=== PATIENT | male | born 1965 | race Caucasian/White ===

== ENCOUNTER 2016-11-17 11:24 | Emergency (ER) | payer SELFPAY ==
[~2016-11-17] VITALS: Ht 182.9 cm; Wt 83.9 kg
--- NOTE | 2016-11-17 11:56 | ED General ---
General Chief Complaint: Allergic Reaction Stated Complaint: R EYE SWELLING/PAIN Nursing Triage Note: PT C/O GENERALIZED HIVES X 4 DAYS. HE DENIES SOA OR ANY OTHER S/S Nursing Sepsis Screen: No Definite Risk Source of Information: Patient Exam Limitations: No Limitations History of Present Illness Time Seen by Provider: 11:56 Initial Comments 51 YO MALE PATIENT PRESENTS TO THE ED WITH C/O GENERALIZED HIVES X4 DAYS. NOW PATIENT C/O HEADACHE. DENIES SOA, DIFFICULTY SWALLOWING, OR DIZZINESS. DENIES NEW FOODS, NEW MEDICATIONS, SOAPS, LAUNDRY DETERGENT, OR CHEMICAL EXPOSURE. SIGNIFICANT OTHER STATES SHE IS NOW STARTING TO GET THE SAME RASH. Timing/Duration: 3-4 Days, Getting Worse Modifying Factors: worse with Other (WORSE WITH SCRATCHING.) Allergies and Home Medications Allergies Uncoded Allergies: PENICILLIN (Allergy, Unknown, 11/17/16) Home Medications Prednisone 20 Mg Tab #10 40 MG PO DAILY Prescribed by: BENITO MURRAY on 11/17/16 1254 Sulfamethoxazole/Trimethoprim 1 Each Tablet #14 1 EACH PO BID Prescribed by: BENITO MURRAY on 11/17/16 1323 Constitutional: No chills, No diaphoresis, No dizziness, No fever, malaise EENTM: nose congestion other (RHINORRHEA.) see HPI tearingNo ear discharge, No ear pain, No mouth pain, No mouth swelling, No throat pain, No throat swelling Respiratory: No cough, No short of breath, No stridor, No wheezing Cardiovascular: no symptoms reported Gastrointestinal: No abdominal pain, No diarrhea, No nausea, No vomiting Genitourinary: no symptoms reported Musculoskeletal: no symptoms reported Skin: see HPI rash Psychiatric/Neurological: HeadacheDenies Numbness, Denies Paresthesia, Denies Tingling, Denies Weakness Immunological/Allergic: see HPI All Other Systems Reviewed Negative Unless Noted: Yes (Negative excepted noted.) Past Ucfxigf-Hcwjvz-Tojezj Hx Patient Social History Alcohol Use: Denies Use Recreational Drug Use: No Smoking Status: Former Smoker Recent Foreign Travel: No Contact w/Someone Who Travel: No Recent Infectious Disease Expo: No Recent Hopitalizations: No Seasonal Allergies Seasonal Allergies: No Surgeries HX Surgeries: No Respiratory Hx Respiratory Disorders: No Cardiovascular Hx Cardiac Disorders: No Neurological Hx Neurological Disorders: No Genitourinary Hx Genitourinary Disorders: No Gastrointestinal Hx Gastrointestinal Disorders: No Musculoskeletal Hx Musculoskeletal Disorders: No HEENT HX ENT Disorders: No Integumentary HX Skin/Integumentary Disorder: No Reviewed Nursing Assessment Reviewed/Agree w Nursing PMH: Yes Family Medical History Significant Family History: No Pertinent Family Hx Physical Exam Vital Signs Vital Sign - Last 12Hours 11/17/16 11:34 Temp 98.5 Pulse 89 Resp 20 B/P 145/89 Pulse Ox 97 O2 Delivery Room Air Capillary Refill : Less Than 3 Seconds General Appearance: No Apparent Distress WD/WN HEENT: PERRL/EOMI TMs Normal Pharynx Normal Other ( PUSTULES NOTED ON THE RT CHEEK WITH EXCORIATIONS. SWELLING AND ERYTHEMA OF THE BILAT EYE LIDS CONSISTENT WITH AN ALLERGIC REACTION. (+) RHINORRHEA AND NASAL CONGESTION.) Neck: Full Range of Motion Non Tender Supple Other ((+) URTICARIAL RASH.) Respiratory: Lungs Clear Normal Breath Sounds No Accessory Muscle Use No Respiratory Distress Cardiovascular: Regular Rate, Rhythm No Murmur Normal Peripheral Pulses Gastrointestinal: Normal Bowel Sounds Non Tender SoftNo Distended Back: Other ((+) URTICARIAL RASH.) Extremity: Normal Capillary Refill Normal Range of Motion Other ((+) URTICARIAL RASH OF ALL EXTREMITIES. BUE SHOW SCABS IN VARIOUS STAGES OF HEALING. ) Neurologic/Psychiatric: Alert Oriented x3 Normal Mood/Affect Skin: No Cool, No Cyanosis, No Damp, No Diaphoresis, No Mottled, No Petechia, Rash (GENERALIZED URTICARIAL RASH. PUSTULES NOTED ON THE RT CHEEK WITH EXCORIATIONS. SWELLING AND ERYTHEMA OF THE BILAT EYE LIDS CONSISTENT WITH AN ALLERGIC REACTION.) Other (BUE SHOW SCABS IN VARIOUS STAGES OF HEALING.) Progress/Results/Core Measures Results/Orders Lab Results Laboratory Tests Test 11/17/16 12:30 Range/Units Basophils # (Auto) 0.1 0.0-0.1 10^3/uL Basophils (%) (Auto) 1 0-10 % C-Reactive Protein High Sensitivity 0.36 0.00-0.50 MG/DL Eosinophils # (Auto) 0.8 H 0.0-0.3 10^3/uL Eosinophils (%) (Auto) 9 0-10 % Hematocrit 46 40-54 % Hemoglobin 15.9 13.3-17.7 G/DL Lymphocytes # (Auto) 2.3 1.0-4.0 X 10^3 Lymphocytes (%) (Auto) 25 12-44 % Mean Corpuscular Hemoglobin 31 25-34 PG Mean Corpuscular Hemoglobin Concent 35 32-36 G/DL Mean Corpuscular Volume 91 80-99 FL Mean Platelet Volume 11.1 H 7.4-10.4 FL Monocytes # (Auto) 0.7 0.0-1.0 X 10^3 Monocytes (%) (Auto) 8 0-12 % Neutrophils # (Auto) 5.4 1.8-7.8 X 10^3 Neutrophils (%) (Auto) 58 42-75 % Platelet Count 210 130-400 10^3/uL Red Blood Count 5.06 4.35-5.85 10^6/uL Red Cell Distribution Width 12.9 10.0-14.5 % White Blood Count 9.3 4.3-11.0 10^3/uL My Orders Orders-BENITO MURRAY Cbc With Automated Diff (11/17/16 12:05) Hs C Reactive Protein (11/17/16 12:05) Saline Lock/Iv-Start (11/17/16 12:05) Ketorolac Injection (Toradol Injection) (11/17/16 12:05) Diphenhydramine Injection (Benadryl Inje (11/17/16 12:05) Methylprednisolone Sod Succ (Solu-Medrol (11/17/16 12:05) Famotidine Injection (Pepcid Injection) (11/17/16 12:05) Prednisone Tablet (Deltasone Tablet) (11/17/16 13:30) Sulfamethoxazole/Trimet Ds Tab (Bactrim (11/17/16 13:30) Medications Given in ED Current Medications Medications Dose Ordered Sig/Rachel Route Start Time Stop Time Status Last Admin Dose Admin Prednisone 40 mg ONCE ONCE PO 11/17/16 13:30 11/17/16 13:31 DC 11/17/16 13:32 40 MG Trimethoprim/ Sulfamethoxazole 1 ea ONCE ONCE PO 11/17/16 13:30 11/17/16 13:31 DC 11/17/16 13:32 1 EA Vital Signs/I&O Vital Sign - Last 12Hours 11/17/16 13:35 Temp 98.5 Pulse 89 Resp 20 Pulse Ox 97 Blood Pressure Mean: 107 Departure Communication Progress Notes Laboratory findings discussed with the patient. Patient reports feeling better with medications. Patient shows improvement in the swelling and rash. Patient is alert and oriented 3, no acute distress. Impression Impression: Primary Impression: Urticaria Disposition: 01 HOME, SELF-CARE Condition: Improved Departure-Patient Inst. Decision time for Depature: 12:51 Referrals: BARBIE MOURA DO (PCP) Primary Care Physician Patient Instructions: Angioedema (DC), Contact Dermatitis (DC) Add. Discharge Instructions: All discharge instructions reviewed with patient and/or family. Voiced understanding. Medications as instructed. Pepcid [id number] 20 mg by mouth twice daily as needed for allergic reactions. Tylenol Extra Strength over -the-counter as directed for pain. Ibuprofen qdnn-oyf-urlyenp as directed for pain. Benadryl 25-50 mg by mouth every 4-6 hours as needed for rash or itching. Claritin, Funmi, or Zyrtec ykfi-fqs-tvugipl as directed for rash or itching. Cool compresses. Follow-up with the family practitioner of choice for recheck and to establish care this week. Call Friday morning for appointment time. Return to the emergency department for worsened symptoms or any other concerns. Scripts Sulfamethoxazole/Trimethoprim (Bactrim Ds Tablet)1 Each Tablet1 Each PO BID #14 TAB Ref 0 Prov:BENITO MURRAY 11/17/16 Prednisone 20 Mg Tab40 Mg PO DAILY #10 TAB Ref 0 Prov:BENITO MURRAY 11/17/16 BENITO MURRAY Nov 17, 2016 11:56 Prednisone 20 Mg Tab40 Mg PO DAILY #10 TAB Ref 0 Prov:BENITO MURRAY 11/17/16 BENITO MURRAY Nov 17, 2016 11:56
[2016-11-17] MEDS ORDERED: diphenhydrAMINE 50 MG/ML INJ (BENADRYL) IV STA (12:05)
[2016-11-17] MEDS ORDERED: KETOROLAC 30 MG/ML VIAL IVP STA (12:05)
[2016-11-17] MEDS ORDERED: methylPREDNISolone 125 MG (Solu-MEDROL) VIAL IV STA (12:05)
[2016-11-17] MEDS ORDERED: FAMOTIDINE 20MG/2ML IV (PEPCID) IV STA (12:05)
[2016-11-17 12:39] LABS: BASOPHILS # (AUTO) 0.1 10^3/uL (0.0-0.1); BASOPHILS % (AUTO) 1 % (0-10); EOSINOPHILS # (AUTO) 0.8 10^3/uL (0.0-0.3); EOSINOPHILS % (AUTO) 9 % (0-10); LYMPHOCYTES # (AUTO) 2.3 X 10^3 (1.0-4.0); LYMPHOCYTES % (AUTO) 25 % (12-44); MEAN CORPUSCULAR HEMOGLOBIN 31 PG (25-34); MEAN CORPUSCULAR HGB CONC 35 G/DL (32-36); MEAN CORPUSCULAR VOLUME 91 FL (80-99); MEAN PLATELET VOLUME 11.1 FL (7.4-10.4); MONOCYTES # (AUTO) 0.7 X 10^3 (0.0-1.0); MONOCYTES % (AUTO) 8 % (0-12); NEUTROPHILS # (AUTO) 5.4 X 10^3 (1.8-7.8); NEUTROPHILS % (AUTO) 58 % (42-75); PLATELET COUNT 210 10^3/uL (130-400); RED BLOOD COUNT 5.06 10^6/uL (4.35-5.85); RED CELL DISTRIBUTION WIDTH 12.9 % (10.0-14.5); WHITE BLOOD COUNT 9.3 10^3/uL (4.3-11.0)
[2016-11-17] MEDS ORDERED: PRD20T PO (12:54)
[2016-11-17] MEDS ORDERED: SULF1TAB35 PO (13:23)
[2016-11-17] MEDS ORDERED: predniSONE 20 MG TAB PO ONE (13:30)
[2016-11-17] MEDS ORDERED: TRIM/SULFAMETH 160/800 (SEPTRA DS) TAB PO ONE (13:30)
[2016-11-17 13:35] VITALS: BP 145/89
== END 2016-11-17 13:35 | disposition home or self-care (01) ==
LOC: EDUNIT# 11:24 → ER 11:25
DX: L50.0 Allergic urticaria (principal)
CPT/HCPCS: 36415; 85025; 86141; 96374; 96375

== ENCOUNTER 2019-04-05 20:15 | Emergency (ER) | payer SELFPAY ==
[~2019-04-05] VITALS: Ht 182.9 cm; Wt 83.9 kg
[~2019-04-05 20:15] MED LIST: PRD20T PO; SULF1TAB35 PO
[2019-04-05] MEDS ORDERED: IBUPROFEN 800 MG (MOTRIN) TAB PO ONE (20:45)
[2019-04-05] MEDS ORDERED: AZITHROMYCIN 250 MG TAB (ZITHROMAX) PO ONE (20:45)
[2019-04-05] MEDS ORDERED: PRD20T PO (20:57)
[2019-04-05] MEDS ORDERED: AZIT250T12 PO (20:57)
--- NOTE | 2019-04-05 20:57 | ED Headache ---
General Chief Complaint: Head/Cervical Problems Stated Complaint: L SIDE HEAD PAIN Nursing Triage Note: PT STATES HEAD PAIN FOR 2 WEEKS. PT DENIES ANY TRAUMA TO HEAD. PT STATES HE HAS HAD HEADACHES IN THE PAST BUT DENIES MIGRAINES. PT STATES THAT THE PAIN HAS NOT GOTTEN BETTER IN TWO WEEKS AND PRESENTS IN THE ER. PT DENIES TAKING ANYTHING FOR THE HEAD PAIN. PT ALERT AND ORIENT. Nursing Sepsis Screen: No Definite Risk History of Present Illness Date Seen by Provider: Apr 05, 2019 Time Seen by Provider: 20:40 Initial Comments 53-year-old male presents for headache, sinus congestion and sinus tenderness left greater than right. He states his symptoms of been present for approximately 2 weeks. He did not have a healthcare provider, take any medication or do preventative care. Timing/Duration: constant Severity/Quality: moderate Location: frontal Prior Headaches/Recent Trauma: no recent headache/trauma, occasional headaches Associated Symptoms: facial pain (frontal and maxillary sinuses left greater than right), nasal congestion, nasal drainage, sinus infection Allergies and Home Medications Allergies Uncoded Allergies: PENICILLIN (Allergy, Unknown, 11/17/16) Home Medications Prednisone 20 Mg Tab, 40 MG PO DAILY Prescribed by: BENITO MURRAY on 11/17/16 1254 Sulfamethoxazole/Trimethoprim 1 Each Tablet, 1 EACH PO BID Prescribed by: BENITO MURRAY on 11/17/16 1323 Patient Home Medication List Home Medication List Reviewed: Yes Review of Systems Review of Systems Constitutional: no symptoms reported, see HPI Ears, Nose, Mouth, Throat: nose pain, nose discharge All Other Systems Reviewed Negative Unless Noted: Yes Past Vanycyo-Sxbgqg-Ipgchc Hx Past Med/Social Hx: Reviewed Nursing Past Med/Soc Hx Patient Social History Alcohol Use: Denies Use Recreational Drug Use: No Smoking Status: Never a Smoker Recent Foreign Travel: No Contact w/Someone Who Travel: No Recent Infectious Disease Expo: No Recent Hopitalizations: No Physical Abuse: No Sexual Abuse: No Mistreated: No Fear: No Seasonal Allergies Seasonal Allergies: No Past Medical History Surgeries: No Respiratory: No Cardiac: No Neurological: No Gastrointestinal: No Musculoskeletal: No Integumentary: No Family Medical History No Pertinent Family Hx Physical Exam Vital Signs Vital Signs - First Documented 04/05/19 20:25 Temp 98.4 Pulse 90 Resp 18 B/P (MAP) 139/116 (124) Pulse Ox 97 O2 Delivery Room Air Capillary Refill : Less Than 3 Seconds Height, Weight, BMI Height: 6'0" Weight: 185lbs. oz. 83.242478sz; BMI Method:Stated General Appearance: WD/WN, mild distress (secondary to pain) HEENT: PERRL/EOMI, TM abnormal (L) (though with cloudy effusion), pharyngeal erythema; No tonsillar exudate; other (tenderness to palpation frontal and maxillary sinuses left greater than right) Neck: non-tender, full range of motion, supple, normal inspection, lymphadenopathy (L) Cardiovascular: normal peripheral pulses, regular rate, rhythm, no murmur Respiratory: chest non-tender, lungs clear, normal breath sounds Gastrointestinal: normal bowel sounds, non tender, soft Psychiatric: alert, oriented x 3, depressed affect Skin: normal color, warm/dry Progress/Results/Core Measures Results/Orders My Orders Orders - PETER STAPLETON Ibuprofen Tablet (Motrin Tablet) (04/05/19 20:45) Azithromycin Tablet (Zithromax Tablet) (04/05/19 20:45) Vital Signs/I&O 04/05/19 20:25 Temp 98.4 Pulse 90 Resp 18 B/P (MAP) 139/116 (124) Pulse Ox 97 O2 Delivery Room Air Blood Pressure Mean: 124 Departure Impression Primary Impression: Sinusitis Qualified Codes: J01.00 - Acute maxillary sinusitis, unspecified Disposition: HOME, SELF-CARE Condition: Improved Departure-Patient Inst. Decision time for Depature: 20:55 Referrals: NO,LOCAL PHYSICIAN (PCP/Family) Primary Care Physician Patient Instructions: Sinus Headache (DC), Sinusitis, Adult (DC) Add. Discharge Instructions: Take antibiotic and prednisone as prescribed. Use Afrin nasal spray as directed for 3 days then discontinue. Warm moist compresses to face over areas of tenderness. You may use a sinus rinse, over the counter Netti Pot or Irrigation. You may alternate between Motrin 600 mg and Tylenol 650 mg every 4 hours for pain or fever. Follow up at [facility] for local walk-in clinic as needed. Return to emergency department for new, urgent health care problems. All discharge instructions reviewed with patient and/or family. Voiced understanding. Scripts Prednisone (Prednisone) 20 Mg Tab 40 MG PO DAILY, #6 TAB 0 Refills Prov: PETER STAPLETON 04/05/19 Azithromycin (Azithromycin) 250 Mg Tablet 250 MG PO UD, #6 TAB TAKE 2 TABLETS ON DAY ONE THEN TAKE 1 TABLET DAILY FOR FOUR MORE DAYS Prov: PETER STAPLETON 04/05/19 PETER STAPLETON Apr 05, 2019 20:57
[2019-04-05 21:04] VITALS: BP 139/116
== END 2019-04-05 21:05 | disposition home or self-care (01) ==
LOC: EDUNIT# 20:15 → ER 20:16
DX: J32.9 Chronic sinusitis, unspecified (principal); Z88.0 Allergy status to penicillin
CPT/HCPCS: 99283

== ENCOUNTER 2021-03-17 14:57 | Emergency (ER) | payer SELFPAY ==
[~2021-03-17] VITALS: Ht 180 cm; Wt 99.7 kg
[~2021-03-17 14:57] MED LIST changes: +AZIT250T12 PO
--- NOTE | 2021-03-17 15:21 | ED Abdominal Pain ---
General Chief Complaint: Abdominal/GI Problems Stated Complaint: GENITAL PAIN X 2 WKS Nursing Triage Note: ARRIVED VIA AMB WITH COMPLAINTS OF LOWER ABD PAIN X2 WEEKS. Sepsis Screen: No Definite Risk Source of Information: Patient Exam Limitations: No Limitations (CHARLIE CHILDERS APRN) History of Present Illness Date Seen by Provider: Mar 17, 2021 Time Seen by Provider: 15:20 Initial Comments Pubic abdominal pain severe in nature for about 2 weeks. He feels like his bladder is full, he can drink all day and only urinate a little. He has had some intermittent constipation. No history of this prior to the onset of this particular episode 2 weeks ago. Timing/Duration: Getting Worse, Other Severity/Quality: Moderate Location: Suprapubic Radiation: No Radiation Activities at Onset: None (CHARLIE CHILDERS APRN) Allergies and Home Medications Allergies Uncoded Allergies: PENICILLIN (Allergy, Unknown, 11/17/16) Home Medications Azithromycin 250 Mg Tablet, 250 MG PO UD TAKE 2 TABLETS ON DAY ONE THEN TAKE 1 TABLET DAILY FOR FOUR MORE DAYS Prescribed by: PETER STAPLETON on 04/05/192056 Prednisone 20 Mg Tab, 40 MG PO DAILY Prescribed by: BENITO MURRAY on 11/17/16 1254 Prednisone 20 Mg Tab, 40 MG PO DAILY Prescribed by: PETER STAPLETON on 04/05/192056 Sulfamethoxazole/Trimethoprim 1 Each Tablet, 1 EACH PO BID Prescribed by: BENITO MURRAY on 11/17/16 1323 Patient Home Medication List Home Medication List Reviewed: Yes (CHARLIE CHILDERS APRN) Review of Systems Review of Systems Constitutional: see HPI EENTM: No Symptoms Reported Respiratory: No Symptoms Reported Cardiovascular: No Symptoms Reported Gastrointestinal: See HPI, Abdominal Pain, Nausea Genitourinary: No Symptoms Reported Musculoskeletal: no symptoms reported Skin: no symptoms reported Psychiatric/Neurological: No Symptoms Reported Endocrine: No Symptoms Reported Hematologic/Lymphatic: No Symptoms Reported (CHARLIE CHILDERS APRN) Past Xnpnwfd-Eztaxw-Qxbwog Hx Patient Social History Alcohol Use: Denies Use Smoking Status: Never a Smoker Recent Infectious Disease Expo: No Recent Hopitalizations: No (CHARLIE CHILDERS APRN) Seasonal Allergies Seasonal Allergies: No (CHARLIE CHILDERS APRN) Past Medical History Surgeries: No Respiratory: No Cardiac: Yes Hypertension Neurological: No Genitourinary: No Gastrointestinal: No Musculoskeletal: No Endocrine: No HEENT: No Cancer: No Psychosocial: No Integumentary: No (CHARLIE CHILDERS APRN) Family Medical History No Pertinent Family Hx (CHARLIE CHILDERS APRN) Physical Exam Vital Signs Vital Signs - First Documented 03/17/21 15:05 Temp 37.1 Pulse 90 Resp 16 B/P (MAP) 126/80 (95) Pulse Ox 94 O2 Delivery Room Air (JESÚS PATRICIA MD) Vital Signs Capillary Refill : Less Than 3 Seconds (CHARLIE CHILDERS APRN) Height/Weight/BMI Height: 6'0" Weight: 185lbs. oz. 83.142777tf; 30.00 BMI Method:Stated General Appearance: WD/WN, no apparent distress HEENT: PERRL/EOMI, normal ENT inspection Neck: non-tender, full range of motion Respiratory: normal breath sounds, no respiratory distress, no accessory muscle use Gastrointestinal: normal bowel sounds, soft, tenderness Genital/Rectal: normal genital exam, other (Patient reports that the pain occasionally radiates down to both testicles. Testicles were examined with Pennie RN at the bedside, these have a normal appearance without swelling or erythema) Extremities: normal range of motion, non-tender Neurologic/Psychiatric: alert, normal mood/affect, oriented x 3 Skin: normal color, warm/dry (CHARLIE CHILDERS APRN) Progress/Results/Core Measures Results/Orders Lab Results Laboratory Tests Test 03/17/21 15:20 Range/Units White Blood Count 8.1 4.3-11.0 10^3/uL Red Blood Count 5.10 4.30-5.52 10^6/uL Hemoglobin 15.7 13.3-17.7 g/dL Hematocrit 46 40-54 % Mean Corpuscular Volume 90 80-99 fL Mean Corpuscular Hemoglobin 31 25-34 pg Mean Corpuscular Hemoglobin Concent 34 32-36 g/dL Red Cell Distribution Width 12.5 10.0-14.5 % Platelet Count 164 130-400 10^3/uL Mean Platelet Volume 10.6 9.0-12.2 fL Immature Granulocyte % (Auto) 0 % Neutrophils (%) (Auto) 72 42-75 % Lymphocytes (%) (Auto) 15 12-44 % Monocytes (%) (Auto) 10 0-12 % Eosinophils (%) (Auto) 2 0-10 % Basophils (%) (Auto) 1 0-10 % Neutrophils # (Auto) 5.9 1.8-7.8 10^3/uL Lymphocytes # (Auto) 1.2 1.0-4.0 10^3/uL Monocytes # (Auto) 0.8 0.0-1.0 10^3/uL Eosinophils # (Auto) 0.2 0.0-0.3 10^3/uL Basophils # (Auto) 0.1 0.0-0.1 10^3/uL Immature Granulocyte # (Auto) 0.0 0.0-0.1 10^3/uL Sodium Level 136 135-145 MMOL/L Potassium Level 3.8 3.6-5.0 MMOL/L Chloride Level 102 98-107 MMOL/L Carbon Dioxide Level 21 21-32 MMOL/L Anion Gap 13 5-14 MMOL/L Blood Urea Nitrogen 10 7-18 MG/DL Creatinine 0.83 0.60-1.30 MG/DL Estimat Glomerular Filtration Rate > 60 BUN/Creatinine Ratio 12 Glucose Level 145 H 70-105 MG/DL Calcium Level 9.4 8.5-10.1 MG/DL Corrected Calcium 9.5 8.5-10.1 MG/DL Total Bilirubin 1.5 H 0.1-1.0 MG/DL Aspartate Amino Transf (AST/SGOT) 96 H 5-34 U/L Alanine Aminotransferase (ALT/SGPT) 150 H 0-55 U/L Alkaline Phosphatase 72 40-136 U/L Total Protein 7.5 6.4-8.2 GM/DL Albumin 3.9 3.2-4.5 GM/DL (JESÚS PATRICIA MD) Vital Signs/I&O 03/17/21 03/17/21 15:05 16:21 Temp 37.1 37.1 Pulse 90 78 Resp 16 16 B/P (MAP) 126/80 (95) 78/80 (95) Pulse Ox 94 96 O2 Delivery Room Air (JESÚS PATRICIA MD) Blood Pressure Mean: 95 Progress Progress Note : Progress Note I was physically present in the emergency department as attending physician during the care of this patient, but I was not directly involved in this patient's care. (JESÚS PATRICIA MD) Departure Communication (Admissions) 1618-discussed with him the CT does not reveal pathology. Labs are unremarkable. Discussed with him the need to check a urine sample to evaluate for urinary tract infection. He states "while there is no blood in it, I think I will just go on home". I asked him if you want to provide us with a urine sample and he states "no". We will discharged home per his request (CHARLIE CHILDERS APRN) Impression Primary Impression: Suprapubic pain Disposition: HOME, SELF-CARE Condition: Stable Departure-Patient Inst. Decision time for Depature: 16:19 (CHARLIE CHILDERS APRN) Referrals: NO,LOCAL PHYSICIAN (PCP/Family) Primary Care Physician Patient Instructions: No Instuctions Given Add. Discharge Instructions: Please note that your evaluation was not complete without urine sample. I cannot exclude a urinary tract infection as the cause of your pain. Follow-up with your doctor this week for recheck. Return to ER for any worsening All discharge instructions reviewed with patient and/or family. Voiced understanding. CHARLIE CHILDERS APRN Mar 17, 2021 15:21 JESÚS PATRICIA MD Mar 19, 2021 09:55
[2021-03-17] MEDS ORDERED: fentaNYL INJ 100 MCG/2 ML AMP IVP ONE (15:30)
[2021-03-17] MEDS ORDERED: KETOROLAC 30 MG/ML VIAL IVP ONE (15:30)
[2021-03-17 15:31] LABS: BASOPHILS # (AUTO) 0.1 10^3/uL (0.0-0.1); BASOPHILS % (AUTO) 1 % (0-10); EOSINOPHILS # (AUTO) 0.2 10^3/uL (0.0-0.3); EOSINOPHILS % (AUTO) 2 % (0-10); HEMATOCRIT 46 % (40-54); HEMOGLOBIN 15.7 g/dL (13.3-17.7); LYMPHOCYTES # (AUTO) 1.2 10^3/uL (1.0-4.0); LYMPHOCYTES % (AUTO) 15 % (12-44); MEAN CORPUSCULAR HEMOGLOBIN 31 pg (25-34); MEAN CORPUSCULAR HGB CONC 34 g/dL (32-36); MEAN CORPUSCULAR VOLUME 90 fL (80-99); MEAN PLATELET VOLUME 10.6 fL (9.0-12.2); MONOCYTES # (AUTO) 0.8 10^3/uL (0.0-1.0); MONOCYTES % (AUTO) 10 % (0-12); NEUTROPHILS # (AUTO) 5.9 10^3/uL (1.8-7.8); NEUTROPHILS % (AUTO) 72 % (42-75); PLATELET COUNT 164 10^3/uL (130-400); WHITE BLOOD COUNT 8.1 10^3/uL (4.3-11.0)
[2021-03-17 15:43] LABS: ALBUMIN 3.9 GM/DL (3.2-4.5); CHLORIDE 102 MMOL/L (98-107); POTASSIUM 3.8 MMOL/L (3.6-5.0); SODIUM 136 MMOL/L (135-145)
[2021-03-17 15:44] LABS: CALCIUM 9.4 MG/DL (8.5-10.1)
[2021-03-17 15:45] LABS: GLUCOSE 145 MG/DL (70-105); TOTAL PROTEIN 7.5 GM/DL (6.4-8.2)
[2021-03-17 15:46] LABS: CARBON DIOXIDE 21 MMOL/L (21-32)
[2021-03-17 15:47] LABS: BILIRUBIN,TOTAL 1.5 MG/DL (0.1-1.0)
[2021-03-17 15:49] LABS: ALKALINE PHOSPHATASE 72 U/L (40-136); CREATININE SERUM 0.83 MG/DL (0.60-1.30); GFR ESTIMATED > 60
[2021-03-17 15:50] LABS: BUN/CREATININE RATIO 12
[2021-03-17 15:52] LABS: ALANINE AMINOTRANSFERASE 150 U/L (0-55)
--- NOTE | 2021-03-17 16:09 | Diagnostic Imaging Report ---
PROCEDURE: CT urinary tract, rule out kidney stone. TECHNIQUE: Multiple contiguous axial images were obtained through the abdomen and pelvis without the use of intravenous contrast. Auto Exposure Controls were utilized during the CT exam to meet ALARA standards for radiation dose reduction. INDICATION: Suprapubic pain. COMPARISON: There is no prior study available for comparison. FINDINGS: There is no evidence of nephrolithiasis or urolithiasis and the kidneys do not appear to be obstructed. The urinary bladder is grossly unremarkable. The prostate gland is not enlarged. There are diverticula scattered throughout the sigmoid colon but there is no sign of acute diverticulitis. The appendix was not particularly well visualized but there are no indirect signs of acute appendicitis. There is no pelvic mass or free fluid collection noted. The liver, spleen, pancreas, gallbladder, adrenals, aorta and inferior vena cava show no sign of an acute abnormality. The stomach is partially filled with particulate matter and difficult to assess. The lung bases are clear. The bone windows show no evidence for a fracture or for a destructive lesion. However, there are bilateral pars defects at L5 and there is a grade 1 spondylolisthesis of L5 with respect to S1. There is also narrowing of the disc space at this level but there is no clear evidence for a high-grade central stenosis. IMPRESSION: 1. There is no evidence for nephrolithiasis or urolithiasis and the kidneys do not appear obstructed. 2. There is no acute abnormality of the abdomen or pelvis noted otherwise. 3. There is diverticulosis of the sigmoid colon without evidence for acute diverticulitis. 4. 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 Dictated by: Dictated on workstation # [id number]
[2021-03-17 16:21] VITALS: BP 78/80
== END 2021-03-17 16:21 | disposition home or self-care (01) ==
LOC: EDUNIT# 14:57 → ER 14:58
DX: R10.30 Lower abdominal pain, unspecified (principal); I10 Essential (primary) hypertension
CPT/HCPCS: 36415; 74176; 80053; 85025

== ENCOUNTER 2021-09-15 19:56 | Emergency (ER) | payer SELFPAY ==
[~2021-09-15 19:56] MED LIST changes: -SULF1TAB35 PO; +SULF1TAB38 PO
== END 2021-09-15 20:30 | disposition left against medical advice (07) ==
LOC: EDUNIT# 19:56 → ER 19:58
DX: R50.9 Fever, unspecified (principal); R53.1 Weakness

== ENCOUNTER 2021-09-16 15:21 | Inpatient (IN) | payer SELFPAY ==
[~2021-09-16] VITALS: Ht 182 cm; Wt 118.7 kg
[2021-09-16] MEDS ORDERED: ACETAMINOPHEN 500 MG TAB (TYLENOL) PO PRN (16:00)
[2021-09-16] MEDS ORDERED: NS IV 1000 ML 1,000 ML IV SCH ×2 (16:00→17:15)
[2021-09-16] MEDS ORDERED: RT-ALBUTEROL/IPRATROPIUM 3 ML (DUONEB) VIAL INH ONE (16:00)
[2021-09-16] MEDS ORDERED: methylPREDNISolone 125 MG (Solu-MEDROL) VIAL IM ONE (16:00)
--- NOTE | 2021-09-16 16:05 | ED Dyspnea ---
General Stated Complaint: FEVER/SOB/CP/COUGH History of Present Illness Date Seen by Provider: Sep 16, 2021 Time Seen by Provider: 16:03 Initial Comments Patient is a 55-year-old male who presents ED with fever, chills, body aches, shortness of breath, chest pain, cough. Symptoms started 4 days ago. Reports chest tightness with difficulty breathing. He reports feeling feverish at home. Denies any vomiting, diarrhea. Reports leg swelling. Denies history of CHF, COPD or asthma. He states he does not seek medical treatment. Drug use 8 months ago. No recent travels or surgeries. Patient on arrival 80% on room air. Patient was placed on 9 L nasal cannula before RT was able to place patient on high flow. (PARESH KNOX) Allergies and Home Medications Allergies Uncoded Allergies: PENICILLIN (Allergy, Unknown, 11/17/16) Patient Home Medication List Home Medication List Reviewed: Yes (PARESH KNOX) Azithromycin (Azithromycin) 250 Mg Tablet, 250 MG PO UD Prescribed by: PETER STAPLETON on 04/05/192056 Prednisone (Prednisone) 20 Mg Tab, 40 MG PO DAILY Prescribed by: BENITO MURRAY on 11/17/16 1254 Prednisone (Prednisone) 20 Mg Tab, 40 MG PO DAILY Prescribed by: PETER STAPLETON on 04/05/192056 Sulfamethoxazole/Trimethoprim (Bactrim Ds Tablet) 1 Each Tablet, 1 EACH PO BID Prescribed by: BENITO MURRAY on 11/17/16 1323 Review of Systems Review of Systems Constitutional: No chills, No diaphoresis, No dizziness, No malaise EENTM: No ear pain, No blurred vision, No eye pain, No tearing Respiratory: cough, short of breath Cardiovascular: chest pain, edema Gastrointestinal: No abdominal pain, No diarrhea, No nausea, No vomiting Genitourinary: No decreased output, No discharge Musculoskeletal: No back pain, No joint pain Skin: No change in color, No change in hair/nails (PARESH KNOX) All Other Systems Reviewed Negative Unless Noted: Yes (PARESH KNOX) Past Lresynk-Nzorcb-Xyrqin Hx Seasonal Allergies Seasonal Allergies: No (PARESH KNOX) Past Medical History Surgeries: No Respiratory: No Cardiac: Yes Hypertension Neurological: No Genitourinary: No Gastrointestinal: No Musculoskeletal: No Endocrine: No HEENT: No Cancer: No Psychosocial: No Integumentary: No (PARESH KNOX) Family Medical History No Pertinent Family Hx (PARESH KNOX) Physical Exam Vital Signs Vital Signs - First Documented 09/16/21 15:45 Temp 38.4 Pulse 100 Resp 40 B/P (MAP) 144/100 (115) Pulse Ox 94 O2 Delivery Nasal Cannula O2 Flow Rate 8.00 (JESÚS PATRICIA MD) Vital Signs Capillary Refill : (PARESH KNOX) Height, Weight, BMI Height: 6'0" Weight: 185lbs. oz. 83.417536vl; 30.00 BMI Method:Stated General Appearance: Moderate Distress HEENT: PERRL/EOMI, TMs Normal, Normal ENT Inspection, Pharynx Normal Neck: Full Range of Motion, Normal Inspection, Non Tender, Supple Respiratory: Accessory Muscle Use, Respiratory Distress Cardiovascular: No Gallop, No Murmur, Tachycardia Gastrointestinal: Normal Bowel Sounds, No Organomegaly, No Pulsatile Mass, Soft, Distended Skin: Normal Color, Warm/Dry (PARESH KNOX) Focused Exam Lactate Level 09/16/21 16:00: Lactic Acid Level 1.23 (JESÚS PATRICIA MD) Lactic Acid Level Laboratory Tests Test 09/16/21 16:00 Lactic Acid Level 1.23 MMOL/L (0.50-2.00) (JESÚS PATRICIA MD) Progress/Results/Core Measures Results/Orders Lab Results Laboratory Tests Test 09/16/21 15:52 09/16/21 16:00 09/16/21 16:10 Range/Units Influenza Type A (RT-PCR) Not Detected Not Detecte Influenza Type B (RT-PCR) Not Detected Not Detecte SARS-CoV-2 RNA (RT-PCR) Not Detected Not Detecte White Blood Count 20.2 H 4.3-11.0 10^3/uL Red Blood Count 5.57 H 4.30-5.52 10^6/uL Hemoglobin 17.4 13.3-17.7 g/dL Hematocrit 51 40-54 % Mean Corpuscular Volume 91 80-99 fL Mean Corpuscular Hemoglobin 31 25-34 pg Mean Corpuscular Hemoglobin Concent 35 32-36 g/dL Red Cell Distribution Width 12.5 10.0-14.5 % Platelet Count 158 130-400 10^3/uL Mean Platelet Volume 10.6 9.0-12.2 fL Immature Granulocyte % (Auto) 1 % Neutrophils (%) (Auto) 79 H 42-75 % Lymphocytes (%) (Auto) 13 12-44 % Monocytes (%) (Auto) 7 0-12 % Eosinophils (%) (Auto) 0 0-10 % Basophils (%) (Auto) 0 0-10 % Neutrophils # (Auto) 15.9 H 1.8-7.8 10^3/uL Lymphocytes # (Auto) 2.7 1.0-4.0 10^3/uL Monocytes # (Auto) 1.4 H 0.0-1.0 10^3/uL Eosinophils # (Auto) 0.0 0.0-0.3 10^3/uL Basophils # (Auto) 0.1 0.0-0.1 10^3/uL Immature Granulocyte # (Auto) 0.1 0.0-0.1 10^3/uL Neutrophils % (Manual) 84 % Lymphocytes % (Manual) 6 % Monocytes % (Manual) 10 % Blood Morphology Comment NORMAL Prothrombin Time 14.4 12.2-14.7 SEC INR Comment 1.1 0.8-1.4 Activated Partial Thromboplast Time 40 H 24-35 SEC Sodium Level 132 L 135-145 MMOL/L Potassium Level 4.3 3.6-5.0 MMOL/L Chloride Level 99 98-107 MMOL/L Carbon Dioxide Level 21 21-32 MMOL/L Anion Gap 12 5-14 MMOL/L Blood Urea Nitrogen 12 7-18 MG/DL Creatinine 0.79 0.60-1.30 MG/DL Estimat Glomerular Filtration Rate 101 BUN/Creatinine Ratio 15 Glucose Level 114 H 70-105 MG/DL Lactic Acid Level 1.23 0.50-2.00 MMOL/L Calcium Level 9.2 8.5-10.1 MG/DL Corrected Calcium 9.5 8.5-10.1 MG/DL Total Bilirubin 1.4 H 0.1-1.0 MG/DL Aspartate Amino Transf (AST/SGOT) 84 H 5-34 U/L Alanine Aminotransferase (ALT/SGPT) 136 H 0-55 U/L Alkaline Phosphatase 63 40-136 U/L Troponin I < 0.028 <0.028 NG/ML B-Type Natriuretic Peptide 20.6 <100.0 PG/ML Total Protein 8.1 6.4-8.2 GM/DL Albumin 3.6 3.2-4.5 GM/DL Procalcitonin 2.34 H <0.10 NG/ML Blood Gas Puncture Site RT RAD Blood Gas Patient Temperature 101.2 Arterial Blood pH 7.49 H 7.37-7.43 Arterial Blood Partial Pressure CO2 31 L 35-45 MMHG Arterial Blood Partial Pressure O2 163 H 79-93 MMHG Arterial Blood HCO3 23 23-27 MMOL/L Arterial Blood Total CO2 23.9 21.0-31.0 MMOL/L Arterial Blood Oxygen Saturation 99 94-100 % Arterial Blood Base Excess 0.3 -2.5-2.5 MMOL/L Robert Test YES-POS Blood Gas Ventilator Setting NO Blood Gas Inspired Oxygen 35 (JESÚS PATRICIA MD) My Orders Orders - JESÚS PATRICIA MD Influenza A And B By Pcr (09/16/21 15:30) Covid 19 Inhouse Test (09/16/21 15:30) (JESÚS PATRICIA MD) Medications Given in ED Current Medications Medications Dose Ordered Sig/Rachel Route Start Time Stop Time Status Last Admin Dose Admin Acetaminophen 1,000 mg ONCE PRN PO 09/16/21 16:00 09/16/21 16:34 DC 09/16/21 16:07 1,000 MG Meropenem 500 mg/ Sodium Chloride 100 ml @ 200 mls/hr ONCE ONCE IV 09/16/21 16:30 09/16/21 16:59 DC 09/16/21 16:47 200 MLS/HR Methylprednisolone Sodium Succinate 125 mg ONCE ONCE IM 09/16/21 16:00 09/16/21 16:01 DC 09/16/21 16:07 125 MG (JESÚS PATRICIA MD) Vital Signs/I&O 09/16/21 09/16/21 09/16/21 15:45 15:45 16:53 Temp 38.4 38.4 Pulse 100 100 Resp 40 B/P (MAP) 144/100 (115) Pulse Ox 94 94 94 O2 Delivery Nasal Cannula Nasal Cannula O2 Flow Rate 8.00 8.00 (JESÚS PATRICIA MD) Initial ECG Impression Date: Sep 16, 2021 Initial ECG Impression Time: 16:35 Comment Sinus rhythm, 92 bpm, QRS duration 100 MS, QTC 471 MS. (PARESH KNOX) Departure Communication (Admissions) Time/Spoke to Admitting Phy: 17:09 Patient presents to ED in respiratory failure. 78 8% on room air. Flulike symptoms over the past 4 days with diarrhea, fever, cough and shortness of breath. No known cardiac history or history of COPD. No recent travels, surgeries. No appreciation of leg swelling. Patient was initially placed on 9 L without significant improvement. Patient was placed at high flow oxygen 35 L at 100% with improvement of tachypnea, heart rate in his symptoms. Chest pain has improved. Chest x-ray concerning for left-sided pneumonia. Negative for Covid and influenza. Patient was started on meropenem secondary to allergies to penicillin. Patient Was given 30 ml/kg IV fluids here in the ED. Elevated white blood count. Normal cardiac lab work. ABG pH 7.49. Improvement of symptoms. Patient was discussed with Dr. Neil who recommends ICU admission. Patient was given Tylenol for fever. (PARESH KNOX) Impression Primary Impression: Pneumonia Additional Impression: Respiratory failure Disposition: ADMITTED INPATIENT Condition: Stable Admissions Decision to Admit Reason: Admit from ER (General) Decision to Admit/Date: Sep 16, 2021 Time/Decision to Admit Time: 17:09 (PARESH KNOX) Departure-Patient Inst. Referrals: NO,LOCAL PHYSICIAN (PCP/Family) Primary Care Physician ATTENDING PHYSICIAN NOTE: I was physically present as attending physician in the emergency department during the care of this patient, but I was not directly involved in the decision making or delivery of care for this patient. (JESÚS PATRICIA MD) PARESH KNOX Sep 16, 2021 16:05 JESÚS PATRICIA MD Sep 16, 2021 20:33
[2021-09-16 16:16] LABS: BASOPHILS # (AUTO) 0.1 10^3/uL (0.0-0.1); BASOPHILS % (AUTO) 0 % (0-10); EOSINOPHILS % (AUTO) 0 % (0-10); HEMATOCRIT 51 % (40-54); HEMOGLOBIN 17.4 g/dL (13.3-17.7); LYMPHOCYTES # (AUTO) 2.7 10^3/uL (1.0-4.0); LYMPHOCYTES % (AUTO) 13 % (12-44); MEAN CORPUSCULAR HEMOGLOBIN 31 pg (25-34); MEAN CORPUSCULAR HGB CONC 35 g/dL (32-36); MEAN CORPUSCULAR VOLUME 91 fL (80-99); MEAN PLATELET VOLUME 10.6 fL (9.0-12.2); MONOCYTES # (AUTO) 1.4 10^3/uL (0.0-1.0); MONOCYTES % (AUTO) 7 % (0-12); NEUTROPHILS # (AUTO) 15.9 10^3/uL (1.8-7.8); NEUTROPHILS % (AUTO) 79 % (42-75); PLATELET COUNT 158 10^3/uL (130-400); WHITE BLOOD COUNT 20.2 10^3/uL (4.3-11.0)
[2021-09-16 16:22] LABS: ABG BASE EXCESS 0.3 MMOL/L (-2.5-2.5); ABG OXYGEN SATURATION 99 % (94-100); ABG PCO2 31 MMHG (35-45); ABG PH 7.49 (7.37-7.43); ABG PO2 163 MMHG (79-93); ABG TCO2 23.9 MMOL/L (21.0-31.0)
[2021-09-16 16:23] LABS: ALLENS TEST YES-POS; INSPIRED O2 35; PATIENT TEMP 101.2; VENTILATOR NO
[2021-09-16] MEDS ORDERED: MEROPENEM 500 MG in NS (IVPB) 100 ML IV ONE (16:30)
[2021-09-16 16:32] LABS: ALBUMIN 3.6 GM/DL (3.2-4.5); CHLORIDE 99 MMOL/L (98-107); INR 1.1 (0.8-1.4); POTASSIUM 4.3 MMOL/L (3.6-5.0); PROTHROMBIN TIME PATIENT 14.4 SEC (12.2-14.7); SODIUM 132 MMOL/L (135-145)
[2021-09-16 16:33] LABS: CALCIUM 9.2 MG/DL (8.5-10.1); LYMPHOCYTES % (MANUAL) 6 %; MONOCYTES % (MANUAL) 10 %; NEUTROPHILS % (MANUAL) 84 %; RBC MORPH NORMAL
[2021-09-16 16:34] LABS: GLUCOSE 114 MG/DL (70-105); TOTAL PROTEIN 8.1 GM/DL (6.4-8.2)
[2021-09-16 16:35] LABS: CARBON DIOXIDE 21 MMOL/L (21-32)
[2021-09-16 16:36] LABS: BILIRUBIN,TOTAL 1.4 MG/DL (0.1-1.0)
--- NOTE | 2021-09-16 16:36 | Diagnostic Imaging Report ---
INDICATION: Shortness of breath. COMPARISON: No prior examinations are available for comparison. FINDINGS: Heart size is normal. There is some atelectasis and/or pneumonitis in the left midlung. No pleural effusion or pneumothorax. The mediastinum is unremarkable. IMPRESSION: Atelectasis and/or pneumonitis in the left midlung. Dictated by: Dictated on workstation # [id number]
[2021-09-16 16:38] LABS: ALKALINE PHOSPHATASE 63 U/L (40-136); CREATININE SERUM 0.79 MG/DL (0.60-1.30); GFR ESTIMATED 101
[2021-09-16 16:39] LABS: BUN/CREATININE RATIO 15
[2021-09-16 16:41] LABS: ALANINE AMINOTRANSFERASE 136 U/L (0-55)
[2021-09-16 16:53] VITALS: BP 144/100
[2021-09-16] MEDS ORDERED: RT-ALBUTEROL/IPRATROPIUM 3 ML (DUONEB) VIAL INH SCH (18:00)
[2021-09-16] MEDS: MEROPENEM 500 MG in NS (IVPB) 100 ML IV SCH (18:05)
[2021-09-16 18:09] VITALS: BP 114/71
[2021-09-16] MEDS ORDERED: polyethylene glycoL POWDER 17 GM (MIRALAX) PACK PO PRN (18:15)
[2021-09-16] MEDS ORDERED: MELATONIN 3 MG TABLET PO PRN (18:15)
[2021-09-16] MEDS ORDERED: ONDANSETRON 4 MG (ZOFRAN) ORAL DISSOLVE TAB PO PRN (18:15)
[2021-09-16] MEDS ORDERED: ANTACID SUSP 30 ML UDC (MYLANTA) PO PRN (18:15)
[2021-09-16] MEDS ORDERED: diphenhydrAMINE 25 MG TAB (BENADRYL) PO PRN (18:15)
[2021-09-16] MEDS ORDERED: ONDANSETRON 4 MG/2 ML (SDV) Z0FRAN IV PRN (18:15)
[2021-09-16] MEDS ORDERED: ACETAMINOPHEN 325 MG TABLET PO PRN (18:15)
[2021-09-16] MEDS: LACTATED RINGERS 1,000 ML IV SCH (18:44)
--- NOTE | 2021-09-16 18:47 | Tele-ICU Consult ---
History of Present Illness History of Present Illness Date Seen by Provider: Sep 16, 2021 Time Seen by Provider: 18:47 Date of Admission 09/16/21 History of Present Illness Is a 55-year-old male who complains to the emergency room with a complaint of prolonged fever chills body aches and shortness of breath and atypical chest pain for about 4 days prior to the admission. He had a chest tightness and wheezing. Apparently he does not smoke but chews tobacco. No history of alcohol abuse. No vomiting or diarrhea present. In the emergency room he is found to have an oxygen saturation on room air about 80% subsequently he was placed on Vapotherm. He is in the ICU resting comfortably. Apparently he used some drugs about 8 months ago since then none. Chest x-ray shoulder infiltrates suggestive of pneumonia. RN reports that he is wheezing. I made a video visit and discussed with the patient and CORPORATE COMMUNICATIONS SPECIALIST. Allergies and Home Medications Allergies Uncoded Allergies: PENICILLIN (Allergy, Unknown, 11/17/16) Home Medications Azithromycin 250 Mg Tablet, 250 MG PO UD TAKE 2 TABLETS ON DAY ONE THEN TAKE 1 TABLET DAILY FOR FOUR MORE DAYS Prescribed by: PETER STAPLETON on 04/05/192056 Prednisone 20 Mg Tab, 40 MG PO DAILY Prescribed by: BENITO MURRAY on 11/17/16 1254 Prednisone 20 Mg Tab, 40 MG PO DAILY Prescribed by: PETER STAPLETON on 04/05/192056 Sulfamethoxazole/Trimethoprim 1 Each Tablet, 1 EACH PO BID Prescribed by: BENITO MURRAY on 11/17/16 1323 Past Medical/Social/Family Hx Patient Social History Tobacco Use?: No Smoking Status: Never a Smoker Smokeless type used: Chew Smokeless Tobacco Frequency: Current Everyday User Use of E-Cig and/or Vaping dev: No Substance use?: No HX DRUG USE STATES QUIT 8 MONTHS AGO Alcohol Use?: No Pt stated abuse/neglect: Yes Immunizations Up To Date Influenza Vaccine Up-to-Date: No; Not Current Current Status Advance Directives: No Communicates: Verbally Primary Language: British Preferred Spoken Language: British Is interpretation needed?: No Implanted or Applied Medical D: None Review of Systems Constitutional: see HPI Other ros per attending Sepsis Event Evaluation Sepsis Stage: Sepsis Height, Weight, BMI Height: 6'0" Weight: 185lbs. oz. 83.328728xn; 30.09 BMI Method:Stated Exam Exam Patient acknowledged, consented, and participated in this virtual visit which was conducted using real time audio/video Vital Signs Date Time Temp Pulse Resp B/P (MAP) Pulse Ox O2 Delivery O2 Flow Rate FiO2 09/16/21 18:09 37.3 78 18 114/71 98 09/16/21 16:53 38.4 100 94 09/16/21 15:45 38.4 100 40 144/100 (115) 94 Nasal Cannula 8.00 09/16/21 15:45 94 Nasal Cannula 8.00 Height & Weight Height: 6'0" Weight: 185lbs. oz. 83.414179el; 30.09 BMI Method:Stated General Appearance: Moderate Distress HEENT: PERRL/EOMI, TMs Normal, Normal ENT Inspection, Pharynx Normal Neck: Full Range of Motion, Normal Inspection, Non Tender, Supple Respiratory: Accessory Muscle Use, Respiratory Distress Cardiovascular: No Gallop, No Murmur, Tachycardia Capillary Refill: Less Than 3 Seconds Skin: Normal Color, Warm/Dry Other comments PE PER ATTENDING Results Lab Laboratory Tests 09/16/21 16:00 Meds REVIEWED Radiology CXR REVIEWED Assessment/Plan Assessment/Plan 1. Community-acquired pneumonia. 2. Acute hypoxic respiratory failure due to pneumonia 3. Rule out sepsis and PE 4. Bronchospasm due to pneumonia with possible underlying asthma. Recommendations 1. We will get a CT angiogram of the chest 2. We will continue meropenem and add azithromycin. 3. IV Solu-Medrol will be given 4. Lovenox for DVT prophylaxis. 5. Bronchodilator therapy. 6. Continue Vapotherm for oxygenation. Critical Care: Critically Ill Patient Time spent with patient (mins): 35 YVES FARRIS MD Sep 16, 2021 18:47
[2021-09-16] MEDS ORDERED: RT-ALBUTEROL/IPRATROPIUM 3 ML (DUONEB) VIAL INH PRN (20:00)
[2021-09-16] MEDS ORDERED: RT-ALBUTEROL HFA 8.5 GM INHALER IH PRN (20:00)
[2021-09-16] MEDS ORDERED: ENOXAPARIN 40 MG/0.4 ML (LOVENOX) SYR SC SCH (21:00)
[2021-09-16] MEDS ORDERED: DOCUSATE SODIUM 100 MG (COLACE) CAP PO SCH (21:00)
[2021-09-16] MEDS ORDERED: AZITHROMYCIN 250 MG TAB (ZITHROMAX) PO ONE (21:00)
--- NOTE | 2021-09-16 21:08 | Diagnostic Imaging Report ---
PROCEDURE: CT angiography of the chest with contrast. TECHNIQUE: Multiple contiguous axial images were obtained through the chest after uneventful bolus administration of intravenous contrast. 3D reconstructed CTA MIP acquisitions were also performed. Auto Exposure Controls were utilized during the CT exam to meet ALARA standards for radiation dose reduction. INDICATION: Hypoxia. Chest pain. Elevated D-dimer. COMPARISON: Chest radiograph performed earlier the same date. FINDINGS: This helical CT pulmonary angiogram is diagnostic to the subsegmental level branches of the pulmonary artery and demonstrates no pulmonary emboli. The heart and great vessels are unremarkable. There is no pericardial effusion. There is no axillary, mediastinal, or hilar adenopathy. Focal consolidative opacities are visualized in the mid and lower lungs, bilaterally. No central endobronchial obstructing lesions. No pleural effusion or pneumothorax. Osseous structures appear normal. There is hepatic steatosis. IMPRESSION: 1. No acute pulmonary embolus. 2. Focal consolidative opacities scattered in the mid and lower lungs bilaterally, concerning for multifocal pneumonia. Recommend follow-up to ensure resolution. 3. Hepatic steatosis. Dictated by: Dictated on workstation # [id number]
[2021-09-16] MEDS ORDERED: CATHETER FLUSH 10 ML SYR IV PRN (21:15)
[2021-09-16] MEDS ORDERED: HOLD METFORMIN - RECEIVED CONTRAST 20 ML VIAL IV SCH (21:15)
[2021-09-16] MEDS ORDERED: IOHEXOL 350 MG/ML 100 ML (OMNIPAQUE 350) VIAL IV ONE (21:15)
[2021-09-16] MEDS ORDERED: NS 100 ML (IVPB) BAG IV ONE (21:15)
[2021-09-16] MEDS: RT-ALBUTEROL HFA 8.5 GM INHALER IH SCH (22:33)
[2021-09-16] MEDS: RT-ALBUTEROL/IPRATROPIUM 3 ML (DUONEB) VIAL INH SCH (23:40)
[2021-09-16] MEDS ORDERED: NS (IVPB) 100 ML ONE (23:55)
[2021-09-17] MEDS ORDERED: methylPREDNISolone 125 MG (Solu-MEDROL) VIAL IVP SCH
[2021-09-17] MEDS: MEROPENEM 500 MG in NS (IVPB) 100 ML IV SCH ×2 (00:03→06:39)
[2021-09-17] MEDS: RT-ALBUTEROL HFA 8.5 GM INHALER IH SCH ×2 (02:55→07:46)
[2021-09-17] MEDS: RT-ALBUTEROL/IPRATROPIUM 3 ML (DUONEB) VIAL INH SCH (03:04)
[2021-09-17] MEDS: LACTATED RINGERS 1,000 ML IV SCH ×2 (03:11→05:04)
[2021-09-17 05:15] LABS: BASOPHILS % (AUTO) 0 % (0-10); EOSINOPHILS % (AUTO) 0 % (0-10); HEMATOCRIT 47 % (40-54); HEMOGLOBIN 15.8 g/dL (13.3-17.7); LYMPHOCYTES # (AUTO) 1.3 10^3/uL (1.0-4.0); LYMPHOCYTES % (AUTO) 11 % (12-44); MEAN CORPUSCULAR HEMOGLOBIN 31 pg (25-34); MEAN CORPUSCULAR HGB CONC 34 g/dL (32-36); MEAN CORPUSCULAR VOLUME 92 fL (80-99); MEAN PLATELET VOLUME 10.6 fL (9.0-12.2); MONOCYTES # (AUTO) 0.1 10^3/uL (0.0-1.0); MONOCYTES % (AUTO) 1 % (0-12); NEUTROPHILS # (AUTO) 10.3 10^3/uL (1.8-7.8); NEUTROPHILS % (AUTO) 87 % (42-75); PLATELET COUNT 130 10^3/uL (130-400); WHITE BLOOD COUNT 11.8 10^3/uL (4.3-11.0)
[2021-09-17 05:41] LABS: PHOSPHORUS 1.8 MG/DL (2.3-4.7)
[2021-09-17 05:43] LABS: MAGNESIUM 1.9 MG/DL (1.6-2.4)
[2021-09-17 05:49] LABS: ALBUMIN 3.2 GM/DL (3.2-4.5); POTASSIUM 3.4 MMOL/L (3.6-5.0)
[2021-09-17 05:50] LABS: CALCIUM 8.6 MG/DL (8.5-10.1)
[2021-09-17 05:52] LABS: TOTAL PROTEIN 7.2 GM/DL (6.4-8.2)
[2021-09-17 05:53] LABS: BILIRUBIN,TOTAL 0.7 MG/DL (0.1-1.0)
[2021-09-17 05:55] LABS: CREATININE SERUM 0.78 MG/DL (0.60-1.30)
[2021-09-17] MEDS ORDERED: MAGNESIUM 1 GM/100 ML IVPB 100 ML IV SCH (06:00)
[2021-09-17] MEDS ORDERED: KCL 20 MEQ TAB (K-DUR) PO SCH (06:00)
[2021-09-17] MEDS ORDERED: POTASSIUM CL 10MEQ/50ML IVPB 50 ML IV SCH (06:00)
--- NOTE | 2021-09-17 06:27 | Diagnostic Imaging Report ---
INDICATION: Follow-up pneumonia. COMPARISON: 09/16/2021 FINDINGS: Single frontal radiographic view of the chest was obtained and demonstrates persistent patchy airspace opacities within the left midlung. No large effusion or pneumothorax is seen. Cardiac silhouette and pulmonary vasculature are within normal limits. Osseous structures show no gross acute abnormalities. IMPRESSION: 1. Persistent patchy infiltrate within the left midlung. Continued follow-up is recommended. Dictated by: Dictated on workstation # [id number]
[2021-09-17] MEDS ORDERED: KCL 20 MEQ TAB (K-DUR) PO ONE (08:00)
[2021-09-17] MEDS ORDERED: AZITHROMYCIN 250 MG TAB (ZITHROMAX) PO SCH (21:00)
--- NOTE | 2021-09-18 08:36 | Discharge Summary ---
Discharge Summary Hospital Course Problems/Dx: (1) Sepsis due to pneumonia Status: Acute (2) Acute respiratory failure with hypoxia Status: Acute Hospital Course Date of Admission: Sep 16, 2021 at 17:06 Admission Diagnosis : Sepsis due to pneumonia Family Physician/Provider: Catherine Phan Physician Date of Discharge: 09/18/21 Discharge Diagnosis: Sepsis due to pneumonia, acute respiratory failure with hypoxia, left against medical advice Hospital Course: Hari Spaulding is a 55 year old male who was admitted with acute respiratory failure with hypoxia and sepsis due to pneumonia. He was started on IV fluids and antibiotics. He was placed on Vapotherm due to hypoxia. Upon my examination, he was very agitated and irritable. He was complaining about the costs of hospitalization and making xenophobic remarks. He decided to leave AGAINST MEDICAL ADVICE despite my urging him to remain in the hospital to continue antibiotics and supplemental oxygen. Labs and Pending Lab Test: Microbiology 09/16/21 MRSA Screen - Final, Complete MRSA not isolated 09/16/21 Blood Culture - Preliminary, Resulted No growth Home Meds Active Prednisone 20 Mg Tab 40 Mg PO DAILY Azithromycin 250 Mg Tablet 250 Mg PO UD TAKE 2 TABLETS ON DAY ONE THEN TAKE 1 TABLET DAILY FOR FOUR MORE DAYS Bactrim Ds Tablet (Sulfamethoxazole/Trimethoprim) 1 Each Tablet 1 Each PO BID Prednisone 20 Mg Tab 40 Mg PO DAILY Assessment/Pt Instructions Patient left AGAINST MEDICAL ADVICE Discharge Planning: <30 minutes discharge planning Discharge Physical Examination Vital Signs Vital Signs Date Time Temp Pulse Resp B/P (MAP) Pulse Ox O2 Delivery O2 Flow Rate FiO2 09/17/21 07:45 72 23 86 Vapotherm 35.00 60.00 09/17/21 07:00 107/64 09/17/21 04:00 60 09/17/21 04:00 35.8 Allergies: Uncoded Allergies: PENICILLIN (Allergy, Unknown, 11/17/16) Discharge Summary Date of Admission Sep 16, 2021 at 17:06 Date of Discharge Sep 17, 2021 at 08:51 Discharge Date: Sep 17, 2021 Discharge Time: 08:51 Admission Diagnosis Sepsis due to pneumonia Discharge Diagnosis (1) Sepsis due to pneumonia Status: Acute (2) Acute respiratory failure with hypoxia Status: Acute DEIRDRE FONSECA MD Sep 18, 2021 08:33
== END 2021-09-17 08:51 | disposition left against medical advice (07) | DRG 871 ==
LOC: EDUNIT# 15:21 → ER 15:22 → ICU 17:06
PROVIDERS: ADMIT Internal Medicine; ATTEND Internal Medicine
PROC: 5A0935A Assistance with Respiratory Ventilation, Less than 24 Consecutive Hours, High Flow/Velocity Cannula (ICD-10-PCS; principal; 2021-09-16)
DX: A41.9 Sepsis, unspecified organism (principal); J18.9 Pneumonia, unspecified organism; J96.01 Acute respiratory failure with hypoxia; J45.909 Unspecified asthma, uncomplicated; I10 Essential (primary) hypertension; F17.220 Nicotine dependence, chewing tobacco, uncomplicated; Z20.822 Contact with and (suspected) exposure to COVID-19; Z88.0 Allergy status to penicillin
CPT/HCPCS: 36410; 36415; 71045; 71275; 76937; 80053; 82805; 83605; 83735; 83880; 84100; 84145; 84484; 85007; 85025; 85027; 85610; 85730; 87040; 87081; 87636; 93005; 94640; 94664; 99291

== ENCOUNTER 2022-07-30 09:18 | Emergency (ER) | payer SELFPAY ==
[~2022-07-30] VITALS: Ht 180.3 cm; Wt 104.3 kg
[2022-07-30 09:20] VITALS: BP 157/97
--- NOTE | 2022-07-30 09:57 | Diagnostic Imaging Report ---
EXAMINATION: Chest 1 view HISTORY: Chest pain. COMPARISON: 09/17/2021. FINDINGS: Lung volumes are low. There is cardiomegaly with central pulmonary vascular congestion. No large pleural effusion or pneumothorax. IMPRESSION: 1. Cardiomegaly with central pulmonary vascular congestion. 2. Low lung volumes. Dictated by: Dictated on workstation # [id number]
[2022-07-30] MEDS ORDERED: fentaNYL INJ 100 MCG/2 ML AMP IVP ONE (10:15)
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
== END 2022-07-30 10:23 | disposition left against medical advice (07) ==
LOC: EDUNIT# 09:18 → ER 09:19
DX: S50.312A Abrasion of left elbow, initial encounter (principal); S50.311A Abrasion of right elbow, initial encounter; S50.812A Abrasion of left forearm, initial encounter; S50.811A Abrasion of right forearm, initial encounter; S80.212A Abrasion, left knee, initial encounter; S80.211A Abrasion, right knee, initial encounter; R10.11 Right upper quadrant pain; R07.89 Other chest pain; E66.9 Obesity, unspecified; Z68.32 Body mass index [BMI] 32.0-32.9, adult; V20.49XA Other motorcycle driver injured in collision with pedestrian or animal in traffic accident, initial encounter; Y92.410 Unspecified street and highway as the place of occurrence of the external cause
CPT/HCPCS: 71045; 93005; 93041